=== PATIENT | male | born 1990 | race Caucasian/White ===

== ENCOUNTER 2017-07-04 16:31 | Inpatient (IN) | payer SELFPAY ==
[2017-07-04] VITALS (8 sets, daily range): BP systolic 120–123; BP diastolic 55–63; PULSE 88–101; RESP 16–20; TEMP 99.4; O2SAT 97–100
[~2017-07-04] VITALS: Ht 177.8 cm; Wt 77.1 kg
[2017-07-04] MEDS ORDERED: IOHEXOL 350 MG/ML 10 ML VIAL (for RAD DIAG) IVCONTRAST ONE (16:32)
[2017-07-04] MEDS ORDERED: MORPHINE SULFATE 8 MG/ML INJ ONE (16:39)
[2017-07-04] MEDS ORDERED: ONDANSETRON HCL 4 MG/2 ML VIAL ONE (16:39)
[2017-07-04] MEDS ORDERED: DIPHTH/TETANUS/ACEL PERTUSSIS (BOOSTER) 0.5 ML VIAL/PFS IM ONE (16:45)
[2017-07-04] MEDS ORDERED: PROPOFOL 200 MG/20 ML AMP ONE (16:46)
[2017-07-04 16:55] LABS: I-STAT POTASSIUM 3.8 MMOL/L (3.5-4.9)
[2017-07-04 17:03] LABS: AUTOMATED NEUTROPHIL # 18.5 TH/MM3 (1.8-7.7); BASOPHIL % 0.1 % (0.0-2.0); EOSINOPHIL # 0.1 TH/MM3 (0-0.4); EOSINOPHIL % 0.5 % (0.0-4.0); HEMATOCRIT 42.2 % (39.0-51.0); HEMO FLAGS DIFF FINAL; LYMPH % 8.8 % (9.0-44.0); LYMPHOCYTE # 1.9 TH/MM3 (1.0-4.8); MEAN CELL VOLUME 86.1 FL (80.0-100.0); MEAN CORPUSCULAR HEMOGLOBIN 28.5 PG (27.0-34.0); MEAN CORPUSCULAR HGB CONC 33.1 % (32.0-36.0); MONO % 3.8 % (0.0-8.0); NEUT % 86.8 % (16.0-70.0); PLATELET COUNT 234 TH/MM3 (150-450); RED CELL DISTRIBUTION WIDTH 13.6 % (11.6-17.2); WHITE BLOOD COUNT 21.3 TH/MM3 (4.0-11.0)
[2017-07-04 17:07] LABS: PROTHROMBIN TIME - PATIENT 10.7 SEC (9.8-11.6)
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
[2017-07-04] MEDS ORDERED: LIDOCAINE HCL 1% 50 ML VIAL INFIL ONE (17:45)
[2017-07-04] MEDS ORDERED: ceFAZolin 2 GM PREMIX 50 ML IV ONE (17:45)
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
[2017-07-04] MEDS ORDERED: NALOXONE HCL 0.4 MG/ML AMP IV PUSH PRN (18:00)
[2017-07-04] MEDS ORDERED: ONDANSETRON HCL 4 MG/2 ML VIAL IV PUSH PRN (18:00)
[2017-07-04] MEDS ORDERED: ACETAMINOPHEN 325 MG TAB PO PRN (18:00)
[2017-07-04] MEDS ORDERED: MISCELLANEOUS NURSING INFORMATION XX SCH (18:00)
[2017-07-04] MEDS ORDERED: MAGNESIUM HYDROXIDE SUSP 30 ML CUP PO PRN (18:00)
[2017-07-04] MEDS ORDERED: ENALAPRILAT 1.25 MG/ML VIAL IV PUSH PRN (18:00)
[2017-07-04] MEDS ORDERED: CHLORHEXIDINE GLUCONATE 2 % 1 PACK (2 CLOTHS) TOP PRN (18:00)
[2017-07-04] MEDS: SODIUM CHLOR 0.9% 1000 ML INJ 1,000 ML IV SCH (18:34)
[2017-07-04] MEDS ORDERED: LACTULOSE SYRUP 20 GM/30 ML CUP PO PRN (21:00)
[2017-07-04] MEDS ORDERED: RESP: ALBUTEROL 2.5 MG/IPRATROPIUM 0.5 MG NEB (PRN) NEB (21:00)
[2017-07-04] MEDS ORDERED: DOCUSATE SODIUM 100 MG CAP PO SCH (21:00)
[2017-07-04] MEDS: ACETAMINOPHEN 1000 MG/100 ML 100 ML IV SCH (21:56)
[2017-07-04] MEDS: FAMOTIDINE 20 MG TAB PO SCH (21:57)
[2017-07-04] MEDS: DOCUSATE SODIUM 50 MG/SENNA 8.6 MG TAB PO SCH (21:57)
[2017-07-04] MEDS: MORPHINE SULFATE 30 MG/30 ML PCA IV SCH (21:58)
[2017-07-04] MEDS: LIDOCAINE HCL 5% PATCH T-DERMAL SCH (21:58)
[2017-07-04] MEDS: METHOCARBAMOL 500 MG TAB PO SCH (21:59)
[2017-07-04] MEDS ORDERED: LACTATED RINGER'S 1000 ML IV PRN (22:45)
[2017-07-04] MEDS ORDERED: METOPROLOL TARTRATE 25 MG TAB PO PRN (22:45)
[2017-07-04] MEDS ORDERED: INSULIN HUMAN REGULAR 1,000 UNITS/10 ML VIAL SQ PRN (22:45)
[2017-07-04] MEDS ORDERED: SODIUM CHLORID 0.9% 500 ML IV PRN (22:45)
[2017-07-04] MEDS ORDERED: POVIDONE IODINE 5% (ANTISEPSIS KIT) 4 APPLICATIONS EACH NARE PRN (22:45)
[2017-07-04] MEDS ORDERED: CHLORHEXIDINE GLUCONATE 2 % 1 PACK (2 CLOTHS) TOPICAL PRN (22:45)
[2017-07-05] VITALS (8 sets, daily range): BP systolic 115–148; BP diastolic 66–86; PULSE 73–87; RESP 16; TEMP 96.6–98.5; O2SAT 96–100
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
[2017-07-05] MEDS: CHLORHEXIDINE GLUCONATE 2 % 1 PACK (2 CLOTHS) TOP SCH ×2 (04:00→21:07)
[2017-07-05] MEDS: METHOCARBAMOL 500 MG TAB PO SCH ×3 (06:00→21:06)
[2017-07-05] MEDS: PCA - TOTAL MG MORPHINE DELIVERED PER SHIFT SCH ×3 (06:00→21:07)
[2017-07-05] MEDS: BACITRACIN TOP OINT 15 GM TUBE TOP SCH ×3 (06:04→21:07)
[2017-07-05 06:45] LABS: AUTOMATED NEUTROPHIL # 11.5 TH/MM3 (1.8-7.7); BASOPHIL % 0.2 % (0.0-2.0); HEMATOCRIT 35.9 % (39.0-51.0); HEMO FLAGS DIFF FINAL; LYMPH % 5.6 % (9.0-44.0); LYMPHOCYTE # 0.8 TH/MM3 (1.0-4.8); MEAN CELL VOLUME 85.6 FL (80.0-100.0); MEAN CORPUSCULAR HEMOGLOBIN 29.4 PG (27.0-34.0); MEAN CORPUSCULAR HGB CONC 34.4 % (32.0-36.0); MONO % 8.9 % (0.0-8.0); NEUT % 85.3 % (16.0-70.0); PLATELET COUNT 181 TH/MM3 (150-450); RED CELL DISTRIBUTION WIDTH 13.9 % (11.6-17.2); WHITE BLOOD COUNT 13.5 TH/MM3 (4.0-11.0)
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
[2017-07-05 07:08] LABS: BICARBONATE 28.1 MEQ/L (21.0-32.0)
--- NOTE | 2017-07-05 07:22 | PD.POD ---
Past Med/Surg/Social History Social History Smoking Status: Current Every Day Smoker Objective Vital Signs Vital Signs Date Time Temp Pulse Resp B/P (MAP) Pulse Ox O2 Delivery O2 Flow Rate FiO2 07/05/17 06:00 14 07/05/17 04:23 98.3 87 16 126/69 (88) 100 07/05/17 00:22 98.5 81 16 135/70 (91) 100 07/04/17 21:58 14 07/04/17 21:30 88 07/04/17 20:40 99.4 92 16 123/63 (83) 100 07/04/17 19:41 Nasal Cannula 2.00 07/04/17 19:31 98 Nasal Cannula 2.00 07/04/17 19:15 07/04/17 18:42 100 Nasal Cannula 2.00 07/04/17 18:30 101 20 120/55 (76) 97 Nasal Cannula 2.00 07/04/17 18:27 16 98 Room Air 07/04/17 17:12 99 2.00 07/04/17 16:45 98 2.00 Coded Allergies: No Known Allergies (Unverified , 07/04/17) Assessment & Plan Diagnosis: (1) Ankle fracture, right ICD Codes: S82.891A - Other fracture of right lower leg, initial encounter for closed fracture Status: Acute A/P FULL CONSULT DICTATED. OR today ORIF ankle with possible Ex fix. Problem Qualifiers (1) Ankle fracture, right: Qualified Codes: S82.891A - Other fracture of right lower leg, initial encounter for closed fracture Jay Calvert DPM Jul 05, 2017 07:22
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
[2017-07-05] MEDS: ACETAMINOPHEN 1000 MG/100 ML 100 ML IV SCH ×2 (08:32→15:00)
[2017-07-05] MEDS: POLYETHYLENE GLYCOL 17 GM PKG PO SCH (08:39)
[2017-07-05] MEDS: FAMOTIDINE 20 MG TAB PO SCH ×2 (08:40→21:06)
[2017-07-05] MEDS: DOCUSATE SODIUM 50 MG/SENNA 8.6 MG TAB PO SCH ×2 (08:40→21:07)
[2017-07-05] MEDS: MORPHINE SULFATE 30 MG/30 ML PCA IV SCH (08:44)
[2017-07-05] MEDS: REMOVE OLD LIDOCAINE PATCH T-DERMAL SCH (08:57)
--- NOTE | 2017-07-05 09:45 | EKG ---
Date Performed: 07/04/2017 Time Performed: 18:34:41 PTAGE: 89 years EKG: SINUS TACHYCARDIA WITH SHORT GA INTERVAL POSSIBLE LEFT ATRIAL ENLARGEMENT ABNORMAL RHYTHM E CG NO PREVIOUS TRACING DOCTOR: Jeramie Mari Interpretating Date/Time 07/05/2017 09:43:54
--- NOTE | 2017-07-05 10:23 | OTSOAPIP ---
RECEIVED OCCUPATIONAL THERAPY ORDERS FROM DR. BANDA. PATIENT IS UNDERGOING SURGICAL INTERVENTION THIS DATE, PLANNED FOR OPEN REDUCTION INTERNAL FIXATION RIGHT ANKLE WITH POSSIBLE EXTERNAL FIXATOR. PATIENT ALSO AWAITING HAND SURGEON CONSULT FOR RIGHT HAND. SPOKE WITH FARAZ CA, WILL HOLD EVALUATION THIS DATE AND FOLLOW UP WITH PATIENT NEXT DAY. INTERDISCIPLINARY COMMUNICATION: REVIEWED ELECTRONIC MEDICAL RECORD, SPOKE WITH FARAZ CA Therapist: Nely Shah, OTR/L Signature on file
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
[2017-07-05] MEDS ORDERED: PHENYLEPH/NS 1000 MCG/10 ML SYR IV ONE (12:00)
[2017-07-05] MEDS ORDERED: LACTATED RINGER'S 1000 ML INJ 1,000 ML IV ONE (12:00)
[2017-07-05] MEDS ORDERED: SODIUM CHLORIDE 0.9% 20 ML VIAL IV ONE (12:00)
[2017-07-05] MEDS ORDERED: ONDANSETRON HCL 4 MG/2 ML VIAL IV ONE (12:00)
[2017-07-05] MEDS ORDERED: DEXAMETHASONE SOD PHOS 4 MG/ML VIAL IV ONE (12:00)
[2017-07-05] MEDS ORDERED: PROPOFOL 200 MG/20 ML AMP IV ONE (12:00)
[2017-07-05] MEDS ORDERED: LIDOCAINE HCL 1% PF 5 ML SYRINGE OTHER ONE (12:00)
[2017-07-05] MEDS: SODIUM CHLOR 0.9% 1000 ML INJ 1,000 ML IV SCH (13:50)
[2017-07-05] MEDS ORDERED: GENTAMICIN SULFATE 80 MG/2 ML VIAL ONE (14:07)
[2017-07-05] MEDS ORDERED: BUPIVACAINE HCL PF 0.25% 30 ML VIAL ONE (14:33)
[2017-07-05] MEDS ORDERED: HYDROmorphone HCL PF 2 MG/ML VIAL ONE ×2 (15:16→16:19)
[2017-07-05] MEDS ORDERED: ceFAZolin 2 GM PREMIX 50 ML ONE (15:47)
--- NOTE | 2017-07-05 19:21 | HHI.PR ---
Immediate Post Op Note Procedure Date: Jul 05, 2017 Pre Op Diagnosis: (1) Ankle fracture, right Post Op Diagnosis: same Surgeon: Jay Linder Director Of Partnerships(s): scrub Procedure: ORIF right ankle, bi malleolar Complications: none Specimen(s) removed: none Estimated blood loss: less 100mL Anesthesia: General, Local Drains: None IVF Tourniquet time (min at mmHg) 250mmhg right thigh at 120min Patient to: Other Patient Condition: Good Implant/Devices: SEE IMPLANT LOG (if applicable) Date/Time of Procedure: SEE SURGICAL CARE RECORD Jay LinderM Jul 05, 2017 19:21
[2017-07-05] MEDS ORDERED: DO NOT ADM ANY ANTICOAGULANT DRUGS PRN (19:25)
--- NOTE | 2017-07-05 19:27 | RADRPT ---
EXAM DATE/TIME: 07/05/2017 18:40 [facility] COMPARISON: No previous studies available for comparison. INDICATIONS : ORIF rt ankle. MEDICAL HISTORY : None. SURGICAL HISTORY : None. ENCOUNTER: Subsequent ACUITY: 1 day PAIN SCORE: Non-responsive. LOCATION: Right Ankle FINDINGS: 3 images recorded digitally in operating room using C-arm after placement of ankle hardware. There i s a long lateral fibular plate and a short medial tibial plate with intact screws. CONCLUSION: Intraoperative images. Conrado Metz MD on July 05, 2017 at 19:25 Board Certified Radiologist. This report was verified electronically.
[2017-07-05] MEDS ORDERED: SENNOSIDES 8.6 MG TAB PO PRN (19:30)
[2017-07-05] MEDS ORDERED: LACTULOSE SYRUP 20 GM/30 ML CUP PO PRN (19:30)
[2017-07-05] MEDS ORDERED: Post-op Orders (for Pharmacy) MISC XX ONE (19:30)
[2017-07-05] MEDS ORDERED: BISACODYL 10 MG SUPP RECTAL PRN (19:30)
[2017-07-05] MEDS ORDERED: MAGNESIUM HYDROXIDE SUSP 30 ML CUP PO PRN (19:30)
[2017-07-05] MEDS: LIDOCAINE HCL 5% PATCH T-DERMAL SCH (21:06)
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
[2017-07-06] VITALS (10 sets, daily range): BP systolic 136–152; BP diastolic 78–84; PULSE 85–99; RESP 16–18; TEMP 97.4–100.6; O2SAT 93–100
[2017-07-06] MEDS: MORPHINE SULFATE 30 MG/30 ML PCA IV SCH ×4 (00:42→18:05)
[2017-07-06] MEDS: METHOCARBAMOL 500 MG TAB PO SCH ×3 (04:54→23:07)
[2017-07-06] MEDS: PCA - TOTAL MG MORPHINE DELIVERED PER SHIFT SCH ×3 (04:55→22:00)
[2017-07-06 04:57] LABS: AUTOMATED NEUTROPHIL # 12.5 TH/MM3 (1.8-7.7); BASOPHIL % 0.1 % (0.0-2.0); EOSINOPHIL % 0.1 % (0.0-4.0); HEMATOCRIT 34.4 % (39.0-51.0); HEMO FLAGS DIFF FINAL; LYMPH % 7.7 % (9.0-44.0); LYMPHOCYTE # 1.2 TH/MM3 (1.0-4.8); MEAN CELL VOLUME 86.5 FL (80.0-100.0); MEAN CORPUSCULAR HEMOGLOBIN 29.1 PG (27.0-34.0); MEAN CORPUSCULAR HGB CONC 33.7 % (32.0-36.0); MONO % 9.8 % (0.0-8.0); NEUT % 82.3 % (16.0-70.0); PLATELET COUNT 157 TH/MM3 (150-450); RED BLOOD COUNT 3.98 MIL/MM3 (4.50-5.90); RED CELL DISTRIBUTION WIDTH 13.9 % (11.6-17.2); WHITE BLOOD COUNT 15.2 TH/MM3 (4.0-11.0)
[2017-07-06 05:22] LABS: BICARBONATE 28.9 MEQ/L (21.0-32.0); POTASSIUM 4.3 MEQ/L (3.5-5.1)
--- NOTE | 2017-07-06 07:53 | RADRPT ---
EXAM DATE/TIME: 07/06/2017 05:11 [facility] COMPARISON: CHEST SINGLE AP, July 05, 2017, 6:38. INDICATIONS : Shortness of breath. MEDICAL HISTORY : None. SURGICAL HISTORY : None. ENCOUNTER: Subsequent ACUITY: 3 days PAIN SCORE: 9/10 LOCATION: Bilateral chest FINDINGS: There is increasing consolidative opacity in left lower lung, now with obscuration of the left hemidi aphragm. The right lung is clear. Heart is normal size. CONCLUSION: Increasing left lower lung infiltrates. Conrado Metz MD on July 06, 2017 at 7:50 Board Certified Radiologist. This report was verified electronically.
[2017-07-06] MEDS: REMOVE OLD LIDOCAINE PATCH T-DERMAL SCH (09:00)
[2017-07-06] MEDS: DOCUSATE SODIUM 50 MG/SENNA 8.6 MG TAB PO SCH ×2 (09:00→23:07)
[2017-07-06] MEDS: BACITRACIN TOP OINT 15 GM TUBE TOP SCH ×2 (09:00→23:12)
[2017-07-06] MEDS: POLYETHYLENE GLYCOL 17 GM PKG PO SCH (09:00)
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
[2017-07-06] MEDS: FAMOTIDINE 20 MG TAB PO SCH ×2 (09:33→23:07)
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
[2017-07-06] MEDS: GABAPENTIN 300 MG CAP PO SCH ×2 (13:11→18:04)
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
[2017-07-06] MEDS: ENOXAPARIN SODIUM 40 MG/0.4 ML SYRINGE SQ SCH (18:04)
[2017-07-06] MEDS: LIDOCAINE HCL 5% PATCH T-DERMAL SCH (23:09)
[2017-07-07] VITALS (8 sets, daily range): BP systolic 131–142; BP diastolic 76–89; PULSE 88–100; RESP 16–18; TEMP 98.9–100; O2SAT 94–98
[2017-07-07] MEDS: MORPHINE SULFATE 30 MG/30 ML PCA IV SCH (01:31)
[2017-07-07] MEDS: CHLORHEXIDINE GLUCONATE 2 % 1 PACK (2 CLOTHS) TOP SCH (02:37)
[2017-07-07] MEDS: PCA - TOTAL MG MORPHINE DELIVERED PER SHIFT SCH (06:00)
[2017-07-07] MEDS: METHOCARBAMOL 500 MG TAB PO SCH ×3 (06:10→21:58)
[2017-07-07] MEDS ORDERED: LACTULOSE SYRUP 20 GM/30 ML CUP PO ONE (08:00)
[2017-07-07] MEDS ORDERED: fentaNYL 50 MCG/HR PATCH T-DERMAL SCH (08:00)
[2017-07-07] MEDS ORDERED: REMOVE OLD FENTANYL PATCH T-DERMAL SCH (08:00)
[2017-07-07] MEDS ORDERED: ACETAMINOPHEN/HYDROcodone 325 MG/5 MG TAB PO PRN (08:00)
[2017-07-07] MEDS: POLYETHYLENE GLYCOL 17 GM PKG PO SCH (08:16)
[2017-07-07] MEDS: GABAPENTIN 300 MG CAP PO SCH ×2 (08:17→13:33)
[2017-07-07] MEDS: DOCUSATE SODIUM 50 MG/SENNA 8.6 MG TAB PO SCH ×2 (08:17→21:59)
[2017-07-07] MEDS: FAMOTIDINE 20 MG TAB PO SCH ×2 (08:17→21:58)
[2017-07-07] MEDS: REMOVE OLD LIDOCAINE PATCH T-DERMAL SCH (08:18)
[2017-07-07] MEDS: BACITRACIN TOP OINT 15 GM TUBE TOP SCH ×2 (08:18→21:59)
--- NOTE | 2017-07-07 08:52 | RADRPT ---
EXAM DATE/TIME: 07/07/2017 08:35 [facility] COMPARISON: CHEST SINGLE AP, July 06, 2017, 5:11. INDICATIONS : Pulmonary contusion. MEDICAL HISTORY : None. SURGICAL HISTORY : None. ENCOUNTER: Subsequent ACUITY: 3 days PAIN SCORE: 5/10 LOCATION: middle chest FINDINGS: Stable left lower lobe airspace consolidation. Cardiomediastinal contours are stable. Remainder of th e exam is unchanged. CONCLUSION: 1. Stable left lower lobe airspace consolidation. Trino Guzman MD on July 07, 2017 at 8:49 Board Certified Radiologist. This report was verified electronically.
[2017-07-07] MEDS: ACETAMINOPHEN/HYDROcodone 325 MG/10 MG TAB PO PRN ×3 (10:18→21:58)
[2017-07-07] MEDS ORDERED: WALKER WHEELS/F1 MIS (11:54)
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
[2017-07-07] MEDS ORDERED: WHEEMIS3 (17:05)
[2017-07-07] MEDS ORDERED: BEDSIDE COMMODE1 MI1 (17:05)
[2017-07-07] MEDS: ENOXAPARIN SODIUM 40 MG/0.4 ML SYRINGE SQ SCH (17:53)
[2017-07-07] MEDS: GABAPENTIN 100 MG CAP PO SCH (17:55)
[2017-07-07] MEDS: LIDOCAINE HCL 5% PATCH T-DERMAL SCH (21:57)
[2017-07-07] MEDS: SODIUM CHLORIDE 0.9% FLUSH 10 ML FLUSH IV FLUSH PRN (21:57)
[2017-07-07] MEDS: traZODone HCL 50 MG TAB PO SCH (21:59)
[2017-07-08] VITALS (9 sets, daily range): BP systolic 121–135; BP diastolic 69–80; PULSE 89–98; RESP 16–19; TEMP 98.5–100; O2SAT 93–99
[2017-07-08] MEDS: ACETAMINOPHEN/HYDROcodone 325 MG/10 MG TAB PO PRN ×5 (03:12→22:31)
[2017-07-08 03:56] LABS: AUTOMATED NEUTROPHIL # 6.9 TH/MM3 (1.8-7.7); BASOPHIL % 0.2 % (0.0-2.0); EOSINOPHIL # 0.2 TH/MM3 (0-0.4); EOSINOPHIL % 1.9 % (0.0-4.0); HEMATOCRIT 33.3 % (39.0-51.0); HEMO FLAGS DIFF FINAL; LYMPH % 15.9 % (9.0-44.0); LYMPHOCYTE # 1.6 TH/MM3 (1.0-4.8); MEAN CELL VOLUME 85.3 FL (80.0-100.0); MEAN CORPUSCULAR HEMOGLOBIN 28.5 PG (27.0-34.0); MEAN CORPUSCULAR HGB CONC 33.4 % (32.0-36.0); PLATELET COUNT 164 TH/MM3 (150-450); RED CELL DISTRIBUTION WIDTH 13.7 % (11.6-17.2); WHITE BLOOD COUNT 9.8 TH/MM3 (4.0-11.0)
[2017-07-08 04:21] LABS: BICARBONATE 32.1 MEQ/L (21.0-32.0); POTASSIUM 3.6 MEQ/L (3.5-5.1)
[2017-07-08] MEDS: METHOCARBAMOL 500 MG TAB PO SCH ×3 (07:15→20:36)
[2017-07-08] MEDS: REMOVE OLD LIDOCAINE PATCH T-DERMAL SCH (09:00)
[2017-07-08] MEDS: GABAPENTIN 100 MG CAP PO SCH ×3 (10:35→17:13)
[2017-07-08] MEDS: DOCUSATE SODIUM 50 MG/SENNA 8.6 MG TAB PO SCH ×2 (10:36→20:35)
[2017-07-08] MEDS: FAMOTIDINE 20 MG TAB PO SCH ×2 (10:36→20:35)
[2017-07-08] MEDS: BACITRACIN TOP OINT 15 GM TUBE TOP SCH ×2 (10:36→20:34)
[2017-07-08] MEDS: POLYETHYLENE GLYCOL 17 GM PKG PO SCH (10:37)
[2017-07-08] MEDS: SODIUM CHLORIDE 0.9% FLUSH 10 ML FLUSH IV FLUSH PRN (10:37)
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
[2017-07-08] MEDS ORDERED: LACTULOSE SYRUP 20 GM/30 ML CUP PO ONE (11:15)
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
[2017-07-08] MEDS ORDERED: ENOX40P SQ (12:08)
[2017-07-08] MEDS ORDERED: GABA100C4 PO (12:09)
[2017-07-08] MEDS ORDERED: HYDR-3583 PO (12:09)
[2017-07-08] MEDS: ENOXAPARIN SODIUM 40 MG/0.4 ML SYRINGE SQ SCH (17:14)
[2017-07-08] MEDS: traZODone HCL 50 MG TAB PO SCH (20:34)
[2017-07-08] MEDS: LIDOCAINE HCL 5% PATCH T-DERMAL SCH (20:36)
[2017-07-09 00:45] VITALS: BP 125/71; PULSE 102; RESP 18; TEMP 99.7; O2SAT 96
[2017-07-09 04:57] VITALS: BP 130/76; PULSE 90; RESP 18; TEMP 100.3; O2SAT 94
[2017-07-09] MEDS: ACETAMINOPHEN/HYDROcodone 325 MG/10 MG TAB PO PRN ×3 (05:20→13:46)
[2017-07-09] MEDS: METHOCARBAMOL 500 MG TAB PO SCH ×2 (05:20→13:45)
[2017-07-09 08:00] VITALS: BP 146/75; PULSE 87; RESP 17; TEMP 97; O2SAT 94
[2017-07-09] MEDS: POLYETHYLENE GLYCOL 17 GM PKG PO SCH (09:00)
[2017-07-09] MEDS: GABAPENTIN 100 MG CAP PO SCH ×2 (09:05→13:45)
[2017-07-09] MEDS: FAMOTIDINE 20 MG TAB PO SCH (09:05)
[2017-07-09] MEDS: DOCUSATE SODIUM 50 MG/SENNA 8.6 MG TAB PO SCH (09:05)
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
[2017-07-09] MEDS: BACITRACIN TOP OINT 15 GM TUBE TOP SCH (09:07)
[2017-07-09] MEDS: REMOVE OLD LIDOCAINE PATCH T-DERMAL SCH (09:07)
[2017-07-09 12:00] VITALS: BP 124/70; PULSE 98; RESP 17; TEMP 99.5; O2SAT 95
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
== END 2017-07-09 16:11 | disposition home or self-care (01) | DRG 958 ==
LOC: NEPI 16:31 → EDBD 18:15 → NEDA 18:15 → N06A 19:25
PROVIDERS: ADMIT Surgery; ATTEND Surgery
PROC: 3E0F7GC Introduction of Other Therapeutic Substance into Respiratory Tract, Via Natural or Artificial Opening (ICD-10-PCS; 2017-07-04)
PROC: 0HQ1XZZ Repair Face Skin, External Approach (ICD-10-PCS; 2017-07-04)
PROC: 0SSFXZZ Reposition Right Ankle Joint, External Approach (ICD-10-PCS; 2017-07-04)
PROC: 0QSG04Z Reposition Right Tibia with Internal Fixation Device, Open Approach (ICD-10-PCS; 2017-07-05)
PROC: 0QSJ04Z Reposition Right Fibula with Internal Fixation Device, Open Approach (ICD-10-PCS; principal; 2017-07-05 15:44)
DX: S82.841A Displaced bimalleolar fracture of right lower leg, initial encounter for closed fracture (principal); S27.0XXA Traumatic pneumothorax, initial encounter; S22.42XA Multiple fractures of ribs, left side, initial encounter for closed fracture; S36.899A Unspecified injury of other intra-abdominal organs, initial encounter; S22.22XA Fracture of body of sternum, initial encounter for closed fracture; S27.321A Contusion of lung, unilateral, initial encounter; S06.0X1A Concussion with loss of consciousness of 30 minutes or less, initial encounter; S37.031A Laceration of right kidney, unspecified degree, initial encounter; S52.201A Unspecified fracture of shaft of right ulna, initial encounter for closed fracture; S62.521A Displaced fracture of distal phalanx of right thumb, initial encounter for closed fracture; S62.602A Fracture of unspecified phalanx of right middle finger, initial encounter for closed fracture; S01.112A Laceration without foreign body of left eyelid and periocular area, initial encounter; V00-Y99 External causes of morbidity; Y92.410 Unspecified street and highway as the place of occurrence of the external cause; Y93.89 Activity, other specified; S93.06XA Dislocation of unspecified ankle joint, initial encounter; R41.2 Retrograde amnesia; F17.200 Nicotine dependence, unspecified, uncomplicated; M54.5 Low back pain; S80.212A Abrasion, left knee, initial encounter; S80.211A Abrasion, right knee, initial encounter
CPT/HCPCS: 70450; 70486; 71010; 71260; 72125; 72170; 73560; 73600; 73610; 73700; 74177; 76000; 80048; 82435; 82565; 82947; 82948; 84132; 84295; 84484; 84520; 85025; 85610; 85730; 86850; 86900; 86901; 90715; 93005; 93306; 94150; 94640; 94667; 94668; C1713; J0131; J0690; J1100; J1170; J1580; J1650; J2270; J2370; J2405; J3010; J7030; J7120; L3808; Q9967